=== PATIENT | female | born 1965 | race Caucasian/White ===

== ENCOUNTER 2018-02-08 16:19 | Outpatient (CLI) | payer OTHER | END 2018-02-08 16:20 | disposition home or self-care (01) | LOC: BICMAMMO 16:19 | PROVIDERS: ATTEND Family Medicine | DX: Z12.31 Encounter for screening mammogram for malignant neoplasm of breast (principal); N63.20 Unspecified lump in the left breast, unspecified quadrant | CPT/HCPCS: 77063; 77067 ==

== ENCOUNTER 2018-02-15 13:03 | Outpatient (CLI) | payer OTHER | END 2018-02-15 13:04 | disposition home or self-care (01) | LOC: BICMAMMO 13:03 | PROVIDERS: ATTEND Family Medicine | DX: N63.20 Unspecified lump in the left breast, unspecified quadrant (principal) ==

== ENCOUNTER 2018-11-21 09:40 | Emergency (ER) | payer OTHER ==
--- NOTE | 2018-11-21 11:15 | RAD ---
LUMBAR SPINE 3 VIEWS: Date: 11/21/18 HISTORY: Pain. COMPARISON: None. FINDINGS: Five lumbar-type vertebral bodies. Lumbar spine vertebral body height is maintained. Disc space heigh ts are preserved. No fracture. Straightening of normal lumbar lordosis presumed to be due to patient position or muscle spasm. IMPRESSION: No evidence of fracture. Nonemergent MRI if clinically warranted. POS: [place]
[2018-11-21] MEDS ORDERED: Ketorolac Tromethamine 30 MG/ML VIAL ONE (11:37)
[2018-11-21] MEDS ORDERED: Cyclobenzaprine 10 MG TAB ONE (11:37)
== END 2018-11-21 13:12 | disposition home or self-care (01) ==
LOC: ERS 09:40
DX: M54.5 Low back pain (principal)
CPT/HCPCS: 72100; 96372; J1885

== ENCOUNTER 2019-01-10 13:04 | Outpatient (CLI) | payer OTHER ==
--- NOTE | 2019-01-10 14:40 | MRI ---
LUMBAR SPINE MRI WITHOUT CONTRAST: Date: 01/10/19 HISTORY: Intervertebral disc degeneration of lumbar spine, low back pain with occasional radiculopathy. TECHNIQUE: Multiplanar, multisequence MR imaging of the lumbar spine provided without contrast. FINDINGS: Sagittal STIR imaging demonstrates no focal area of osseous marrow edema. There is a T1 hypointense and T2 hyperintense lesion within L2 vertebral body inferiorly, most consis tent with an atypical hemangioma. Sagittal imaging demonstrates no focal area of osseous marrow edema . Vertebral body height and alignment appears within normal limits within the lumbar spine. T12-L1: There is disc desiccation, disc space narrowing, and mild disc bulge. There is a small left paracentral annular tear. There is no significant central canal or neural foraminal stenosis. L1-2: Intervertebral disc height and signal intensity within normal limits. No significant central c anal or neural foraminal stenosis. L2-3: Intervertebral disc height and signal intensity within normal limits with no significant centr al canal or neural foraminal stenosis. L3-4: There is disc desiccation and mild disc bulge. No significant central canal or neural foramina l stenosis. L4-5: There is disc space narrowing and disc desiccation with a central annular tear and a small ass ociated central disc protrusion causing no significant central canal or neural foraminal stenosis. L5-S1: Mild bilateral facet hypertrophy. No significant central canal or neural foraminal stenosis. Imaged retroperitoneal structures demonstrate no acute findings. Small cyst suspected in mid pole rig ht kidney. There is a benign hemangioma within the S2 vertebral body. IMPRESSION: Mild degenerative change with no significant central canal or neural foraminal stenosis. POS: [facility]
== END 2019-01-10 13:05 | disposition home or self-care (01) ==
LOC: BICMRI 13:04
PROVIDERS: ATTEND Neurological Surgery
DX: M51.36 Other intervertebral disc degeneration, lumbar region (principal)
CPT/HCPCS: 72148

== ENCOUNTER 2019-02-16 07:58 | Outpatient (CLI) | payer OTHER ==
--- NOTE | 2019-02-16 08:33 | MMO ---
Bilateral MAMMO Bilat Screen [facility]. CLINICAL HISTORY: Patient is 53 years old and is seen for screening. The patient has no family history of breast cancer. The patient has no personal history of cancer. VIEWS: The views performed were: bilateral craniocaudal with tomosynthesis and bilateral mediolateral oblique with tomosynthesis. FILMS COMPARED: The present examination has been compared to a prior imaging study performed at [facility] on 02/08/2018. MAMMOGRAM FINDINGS: There are scattered fibroglandular densities. There are several low density, oval masses with circumscribed margins seen in the left breast. These are compatible with fluctuating cysts. There are no suspicious masses, suspicious calcifications, or new areas of architectural distortion. IMPRESSION: THERE IS NO MAMMOGRAPHIC EVIDENCE OF MALIGNANCY. A ROUTINE FOLLOW-UP MAMMOGRAM IN 1 YEAR IS RECOMMENDED. THE RESULTS OF THIS EXAM WERE SENT TO THE PATIENT. ACR BI-RADS Category 2 - Benign finding MAMMOGRAPHY NOTE: 1. A negative mammogram report should not delay a biopsy if a dominant of clinically suspicious mass is present. 2. Approximately 10% to 15% of breast cancers are not detected by mammography. 3. Adenosis and dense breasts may obscure an underlying neoplasm.
== END 2019-02-16 07:59 | disposition home or self-care (01) ==
LOC: BICMAMMO 07:58
PROVIDERS: ATTEND Family Medicine
DX: Z12.31 Encounter for screening mammogram for malignant neoplasm of breast (principal)
CPT/HCPCS: 77063; 77067

== ENCOUNTER 2019-07-20 05:45 | Day surgery (SDC) | payer OTHER ==
[2019-07-19 09:21] VITALS: BMI 27.9
[~2019-07-20 05:45] MED LIST: Cyclopentolate 1% Opth Drop 2 ML BOT FS SCH; EPINEPHrine 0.3 MG in Ophthalmic Irrigation Solution 500 ML IRR SCH; Phenylephrine 2.5% Ophth Soln 5 ML BOT FS SCH
[2019-07-20] MEDS ORDERED: Phenylephrine 2.5% Ophth Soln 5 ML BOT ONE (06:07)
[2019-07-20] MEDS ORDERED: Cyclopentolate 1% Opth Drop 2 ML BOT ONE (06:07)
[2019-07-20] MEDS ORDERED: Midazolam HCl 2 mg/2 ml Vial ONE (06:35)
[2019-07-20] MEDS ORDERED: PROPOFOL 20 ML ONE (06:35)
[2019-07-20] MEDS ORDERED: Fentanyl 100 MCG/2 ML VIAL ONE (06:35)
--- NOTE | 2019-07-20 10:04 | OP ---
DATE OF PROCEDURE: 07/20/2019 PREOPERATIVE DIAGNOSIS: Epiretinal membrane, right eye. POSTOPERATIVE DIAGNOSIS: Epiretinal membrane, right eye. PROCEDURES PERFORMED: Pars plana vitrectomy, membrane peel, right eye. ANESTHESIA: Local with monitored anesthesia care. DESCRIPTION OF PROCEDURE: The patient was identified in the preoperative holding area. Appropriate informed consent for the planned surgical procedure on the right eye had been obtained. The patient was transported to the operative suite. Appropriate cardiopulmonary monitoring was established. Local anesthesia was obtained using retrobulbar modified Van Lint lid block using 50:50 mixture of 4% lidocaine and 0.75% bupivacaine. The patient was prepped and draped in usual sterile manner for ophthalmic surgery, right eye. Lid speculum was placed in the right eye. A 25-gauge trocar was in the conjunctiva and sclera superotemporally, inferotemporally, and supranasally. Infusion line was placed inferotemporally. Light pipe and vitreous cutter were inserted into the eye. Core vitrectomy was performed. Indocyanine green dye was infused on the posterior pole x1 identifying the epiretinal membrane. This was elevated using membrane scraper and peeled across the macula using end gripping forceps. Indirect ophthalmoscopy was used to examine the retina 360 degrees. No holes, breaks, or tears were identified. Prophylactic laser was placed behind the sclerotomy sites and around the old horseshoe tear at the 10 o'clock position. Trocar was removed. Eye was noted to retain pressure well. Retrobulbar Kenalog and subconjunctival Ancef were placed. Antibiotic ointment was placed. The eye was patched and shielded. The patient was taken to postoperative recovery unit in good condition, having suffered no immediate perioperative complications. The patient was instructed to keep patch and shield on, avoid lifting or bending, and followup appointment with Dr. Whitley. Job ID: [id number]
[2019-07-20] MEDS ORDERED: Bupivacaine PF 0.75% SDV 10 ML ONE (14:26)
[2019-07-20] MEDS ORDERED: Lidocaine 4% PF 5 ML AMP ONE (14:26)
[2019-07-20] MEDS ORDERED: Lidocaine 1% PF 5 ML VIAL ONE (14:26)
[2019-07-20] MEDS ORDERED: Triamcinolone 40 MG/ML VIAL ONE (14:26)
[2019-07-20] MEDS ORDERED: Indocyanine Green 25 MG/10 ML VIAL ONE (14:26)
[2019-07-20] MEDS ORDERED: PROPOFOL 200 MG/20 ML VIAL ONE (14:26)
[2019-07-20] MEDS ORDERED: Maxitrol 0.1% Opth Oint 3.5 GM TUBE ONE (14:26)
== END 2019-07-20 08:33 | disposition home or self-care (01) ==
LOC: SDC 05:45
PROVIDERS: ATTEND Ophthalmology Retina Specialist
PROC: 08T43ZZ Resection of Right Vitreous, Percutaneous Approach (ICD-10-PCS; principal; 2019-07-20)
PROC: 08NE3ZZ Release Right Retina, Percutaneous Approach (ICD-10-PCS; principal; 2019-07-20)
DX: H35.371 Puckering of macula, right eye (principal); Z79.899 Other long term (current) drug therapy; Z88.5 Allergy status to narcotic agent
CPT/HCPCS: J0171; J2001; J2250; J2704; J3010; J3301; J3490

== ENCOUNTER 2020-02-19 07:48 | Outpatient (CLI) | payer OTHER ==
--- NOTE | 2020-02-19 08:24 | MMO ---
Bilateral MAMMO Bilat Screen [facility]. CLINICAL HISTORY: Patient is 54 years old and is seen for screening. The patient has no family history of breast cancer. The patient has no personal history of cancer. VIEWS: The views performed were: bilateral craniocaudal with tomosynthesis and bilateral mediolateral oblique with tomosynthesis. FILMS COMPARED: The present examination has been compared to prior imaging studies performed at [facility] on 02/08/2018 and 02/16/2019, at [facility] on 11/12/2014, and at [facility] on 11/30/2016. This study has been interpreted with the assistance of computer-aided detection. MAMMOGRAM FINDINGS: There are scattered fibroglandular densities. There are no suspicious masses, suspicious calcifications, or new areas of architectural distortion. IMPRESSION: THERE IS NO MAMMOGRAPHIC EVIDENCE OF MALIGNANCY. A ROUTINE FOLLOW-UP MAMMOGRAM IN 1 YEAR IS RECOMMENDED. THE RESULTS OF THIS EXAM WERE SENT TO THE PATIENT. ACR BI-RADS Category 1 - Negative MAMMOGRAPHY NOTE: 1. A negative mammogram report should not delay a biopsy if a dominant of clinically suspicious mass is present. 2. Approximately 10% to 15% of breast cancers are not detected by mammography. 3. Adenosis and dense breasts may obscure an underlying neoplasm. Reported by: LEONARDO WADE MD Electonically Signed: [id number]
== END 2020-02-19 07:49 | disposition home or self-care (01) ==
LOC: BICMAMMO 07:48
PROVIDERS: ATTEND Student in an Organized Health Care Education/Training Program
DX: Z12.31 Encounter for screening mammogram for malignant neoplasm of breast (principal)
CPT/HCPCS: 77063; 77067

== ENCOUNTER 2021-02-20 08:02 | Outpatient (CLI) | payer OTHER | END 2021-02-20 08:03 | disposition home or self-care (01) | LOC: BICMAMMO 08:02 | PROVIDERS: ATTEND Student in an Organized Health Care Education/Training Program | DX: Z12.31 Encounter for screening mammogram for malignant neoplasm of breast (principal) | CPT/HCPCS: 77063; 77067 ==

== ENCOUNTER 2022-03-27 08:24 | Outpatient (CLI) | payer BC, OTHER | END 2022-03-27 08:25 | disposition home or self-care (01) | LOC: BICMAMMO 08:24 | PROVIDERS: ATTEND Physician Assistant | DX: Z12.31 Encounter for screening mammogram for malignant neoplasm of breast (principal) | CPT/HCPCS: 77063; 77067 ==

== ENCOUNTER 2022-04-07 08:11 | Outpatient (CLI) | payer BC, OTHER | END 2022-04-07 08:12 | disposition home or self-care (01) | LOC: BICMAMMO 08:11 | PROVIDERS: ATTEND Physician Assistant | DX: R92.8 Other abnormal and inconclusive findings on diagnostic imaging of breast (principal) | CPT/HCPCS: G0279 ==

== ENCOUNTER 2023-04-26 08:22 | Outpatient (CLI) | payer BC, OTHER | END 2023-04-26 08:23 | disposition home or self-care (01) | LOC: BICMAMMO 08:22 | PROVIDERS: ATTEND Physician Assistant | DX: Z12.31 Encounter for screening mammogram for malignant neoplasm of breast (principal) | CPT/HCPCS: 77063; 77067 ==

== ENCOUNTER 2023-07-02 08:58 | Outpatient (CLI) | payer BC, OTHER | END 2023-07-02 08:59 | disposition home or self-care (01) | LOC: BICULT 08:58 | PROVIDERS: ATTEND Physician Assistant Medical | DX: K59.00 Constipation, unspecified (principal); R10.13 Epigastric pain; K76.0 Fatty (change of) liver, not elsewhere classified | CPT/HCPCS: 76705 ==

== ENCOUNTER 2024-04-27 07:48 | Outpatient (CLI) | payer BC, OTHER | END 2024-04-27 07:49 | disposition home or self-care (01) | LOC: BICMAMMO 07:48 | PROVIDERS: ATTEND Obstetrics & Gynecology | DX: Z12.31 Encounter for screening mammogram for malignant neoplasm of breast (principal) | CPT/HCPCS: 77063; 77067 ==

== ENCOUNTER 2025-05-17 08:21 | Outpatient (CLI) | payer BC, OTHER | END 2025-05-17 08:22 | disposition home or self-care (01) | LOC: BICMAMMO 08:21 | PROVIDERS: ATTEND Obstetrics & Gynecology | DX: Z13.820 Encounter for screening for osteoporosis (principal); M85.851 Other specified disorders of bone density and structure, right thigh; M85.852 Other specified disorders of bone density and structure, left thigh | CPT/HCPCS: 77080 ==